=== PATIENT | female | born 1990 | race Caucasian/White ===

== ENCOUNTER 2016-06-19 18:22 | Inpatient (IN) ==
[2016-06-19] MEDS ORDERED: PITOCIN 30 UNITS/LR 30 UNITS/500 ML IV.SOLN IV SCH (18:52)
[2016-06-19] MEDS ORDERED: LR 1,000 ML IV SCH (18:52)
[2016-06-19] MEDS ORDERED: PEPCID PO PRN (18:52)
[2016-06-19] MEDS ORDERED: PEPCID IV PRN (18:52)
[2016-06-19] MEDS ORDERED: PEPCID PO ONE (18:52)
[2016-06-19] MEDS ORDERED: TYLENOL PO PRN (18:52)
[2016-06-19] MEDS ORDERED: REGLAN PO ONE (18:52)
[2016-06-19] MEDS ORDERED: STADOL IV PRN (18:52)
[2016-06-19] MEDS ORDERED: ZOFRAN IV PRN (18:52)
[2016-06-19] MEDS ORDERED: SODIUM CHLORIDE 0.9% INJ SCH (19:00)
[2016-06-19] MEDS ORDERED: VANCOMYCIN 1 GM/NS 1 GM/250 ML IVPB IV SCH (19:00)
[2016-06-19 19:12] LABS: MANUAL DIFF NEEDED? NO
[2016-06-19 19:15] LABS: BASO% 0.1 % (0.0-0.8); EOS# 0.08 X1000 (0.0-0.7); EOS% 0.5 % (0.0-10.0); HEMATOCRIT 35.7 % (37.0-47.0); IMM GRAN# 0.04 X1000 (0.0-0.04); IMM GRAN% 0.3 % (0.0-0.5); LYMPH# 1.76 X1000 (1.2-3.4); MCH 29.8 PG (27-31); MCHC 33.6 g/dL (33-37); MCV 88.6 FL (81-99); MONO# 0.98 X1000 (0.11-0.59); MONO% 6.2 % (1.7-9.3); MPV 9.5 FL (7.4-10.4); NEUT% 81.9 % (42.2-75.2); PLT 279 X1000 (130-400); RBC 4.03 XMIL (4.2-5.4)
[2016-06-19] MEDS ORDERED: XYLOCAINE-MPF 1% 5 ML ONE (19:19)
[2016-06-19] MEDS ORDERED: FENTANYL ONE (19:20)
[2016-06-19] MEDS ORDERED: NAROPIN 0.2% ONE (19:20)
[2016-06-19] MEDS ORDERED: MINERAL OIL ONE (20:08)
[2016-06-19 20:24] LABS: URINE SOURCE VOIDED
[2016-06-19 20:53] LABS: BILIRUBIN URINE NEGATIVE (NEGATIVE); CLARITY VERY CLOUDY (CLEAR); COLOR AMBER
[2016-06-19] MEDS ORDERED: PERI MEDS (DERMOPLAST/NUPERCAINAL/TUCKS) MISC PRN (22:21)
[2016-06-19] MEDS ORDERED: PITOCIN 30 UNITS/LR 30 UNITS/500 ML IV.SOLN IV ONE (22:21)
[2016-06-19] MEDS ORDERED: XYLOCAINE-MPF 1% INJ PRN (22:21)
[2016-06-19] MEDS ORDERED: BENADRYL IV PRN (22:21)
[2016-06-19] MEDS ORDERED: HYDROXYZINE IM PRN (22:21)
[2016-06-19] MEDS ORDERED: PITOCIN 20 UNITS/LR 20 UNITS/1,000 ML IV.SOLN IV SCH (22:21)
[2016-06-19] MEDS ORDERED: CYTOTEC PO PRN (22:21)
[2016-06-19] MEDS ORDERED: MINERAL OIL PO PRN (22:21)
[2016-06-19] MEDS ORDERED: M-M-R II VACCINE SUBQ ONE (22:21)
[2016-06-19] MEDS ORDERED: BOOSTRIX VACCINE IM ONE (22:21)
[2016-06-19] MEDS ORDERED: AMBIEN PO PRN (22:21)
[2016-06-19] MEDS ORDERED: PITOCIN IM PRN (22:21)
[2016-06-19] MEDS ORDERED: HYDROXYZINE PO PRN (22:21)
[2016-06-19] MEDS ORDERED: BENADRYL PO PRN (22:21)
[2016-06-19] MEDS ORDERED: PERCOCET-5 PO PRN (22:21)
[2016-06-19] MEDS ORDERED: PITOCIN 20 UNITS/LR 20 UNITS/1,000 ML IV.SOLN ONE (22:25)
[2016-06-19 23:35] LABS: BLOOD URINE 4+ (NEGATIVE); LEUKOCYTES URINE 2+ (NEGATIVE); NITRITE URINE NEGATIVE (NEGATIVE); PROTEIN URINE 1+(30 mg/dL) mg/dL (NEGATIVE); UROBILINOGEN URINE 4+(12 mg/dL)
[2016-06-20] MEDS: PERCOCET-10 PO PRN ×5 (00:45→19:29)
[2016-06-20] MEDS: MOTRIN PO PRN ×3 (00:46→19:29)
[2016-06-20 06:37] LABS: HEMATOCRIT 31.1 % (37.0-47.0); HEMOGLOBIN 10.4 g/dL (12.0-16.0); MCH 30.1 PG (27-31); MCHC 33.4 g/dL (33-37); MCV 90.1 FL (81-99); RBC 3.45 XMIL (4.2-5.4)
[2016-06-20] MEDS: CIPRO PO SCH ×2 (17:55→22:03)
[2016-06-20 18:07] LABS: EOS# 0.04 X1000 (0.0-0.7); EOS% 0.5 % (0.0-10.0); HEMATOCRIT 31.7 % (37.0-47.0); HEMOGLOBIN 10.4 g/dL (12.0-16.0); IMM GRAN# 0.04 X1000 (0.0-0.04); IMM GRAN% 0.5 % (0.0-0.5); LYMPH# 0.32 X1000 (1.2-3.4); LYMPH% 4.1 % (20.5-51.1); MANUAL DIFF NEEDED? YES; MCH 29.8 PG (27-31); MCHC 32.8 g/dL (33-37); MCV 90.8 FL (81-99); MONO# 0.29 X1000 (0.11-0.59); MONO% 3.7 % (1.7-9.3); NEUT% 91.2 % (42.2-75.2); PLT 182 X1000 (130-400); RBC 3.49 XMIL (4.2-5.4)
[2016-06-20 18:40] LABS: EOS 1 % (1-10); LYMPHS 4 % (21-51); MONO 3 % (1-9)
[2016-06-20] MEDS: PERICOLACE PO SCH (21:31)
[2016-06-20 21:57] LABS: URINE SOURCE CLEAN CATCH
[2016-06-20] MEDS: MUCINEX PO SCH (22:03)
[2016-06-20 22:08] LABS: BILIRUBIN URINE NEGATIVE (NEGATIVE); BLOOD URINE 4+ (NEGATIVE); CLARITY CLEAR (CLEAR); COLOR YELLOW; LEUKOCYTES URINE 1+ (NEGATIVE); NITRITE URINE NEGATIVE (NEGATIVE); PROTEIN URINE TRACE mg/dL (NEGATIVE); URINE MICROSCOPIC NEEDED? YES; UROBILINOGEN URINE NORMAL
[2016-06-20 22:33] LABS: URINE EPITHELIAL CELLS >10 /HPF (<10); URINE RBC TNTC /HPF (<10)
[2016-06-20 22:34] LABS: URINE WBC <10 /HPF (<10)
[2016-06-21] MEDS: PERCOCET-10 PO PRN ×7 (00:24→23:57)
[2016-06-21] MEDS: MOTRIN PO PRN ×3 (04:07→23:57)
[2016-06-21] MEDS: MUCINEX PO SCH ×2 (08:52→20:25)
[2016-06-21] MEDS: CIPRO PO SCH ×2 (08:53→20:24)
[2016-06-21] MEDS: PRECARE PO SCH (08:53)
--- NOTE | 2016-06-21 09:39 | PROGRESS NOTE ---
DATE: 06/21/2016 She is day 2. She is without complaints. No real issues. The baby cannot go home today and she would like to stay. She delivered late in the evening on the so she is allowed to stay until tomorrow morning so that is the plan, to discharge tomorrow morning. Her vital signs are stable. She is afebrile. She is alert and cooperative, in no distress. Neck is supple. Lungs are clear. Heart has regular sinus rhythm. Abdomen is slightly distended. Uterus is firm. Hemoglobin and hematocrit from yesterday afternoon, 10.4 which is stable from yesterday morning. This was checked due to an elevated pulse rate. However, she now has a normal pulse rate so we will continue routine . Expect discharge in the morning. cc: MD Marcio Guardado MD
[2016-06-21] MEDS: PERICOLACE PO SCH (20:25)
[2016-06-22] MEDS: PERCOCET-10 PO PRN (08:07)
[2016-06-22] MEDS: MOTRIN PO PRN (08:07)
[2016-06-22 09:12] VITALS: BP 133/85
[2016-06-22] MEDS: CIPRO PO SCH (09:41)
[2016-06-22] MEDS: PRECARE PO SCH (09:42)
[2016-06-22] MEDS: MUCINEX PO SCH (09:42)
== END 2016-06-22 12:30 | disposition home or self-care (01) ==
LOC: P.OPLD 18:22 → P.LD 18:25
PROVIDERS: ADMIT Obstetrics & Gynecology; ATTEND Obstetrics & Gynecology